=== PATIENT | male | born 1995 | race Caucasian/White ===

== ENCOUNTER 2017-01-18 15:12 | Emergency (ER) | payer OTHER ==
--- NOTE | 2017-01-18 16:29 | DIAGNOSTIC IMAGING REPORT ---
PROCEDURE: ABDOMEN/PELVIS WITH CONTRAST CLINICAL INDICATION: ABDOMINAL PAIN TECHNIQUE: 125 ml of Isovue 300 were injected intravenously and axial images were obtained of the abdomen and pelvis with sagittal and coronal reformations. COMPARISON: None. FINDINGS: ABDOMEN: Clear lung bases. Normal sized heart. No hiatal hernia. The liver is moderately diffusely hypodense. The stomach is filled with ingested material. The gallbladder is decompressed. The adrenal glands, kidneys, pancreas and spleen are normal. The abdominal aorta is normal in its course and caliber. No atherosclerosis. There are no suspicious calcifications, retroperitoneal adenopathy or masses. The stomach, upper small bowel loops, and mesentery are normal. Intact anterior abdominal wall. No free fluid or inflammation. Mild circumferential wall thickening, slight mural edema, and mild mucosal enhancement involving the splenic flexure colon. The rest of the colon appears normal without significant pericolonic inflammation. There are multiple nonenlarged lymph nodes in the right lower quadrant mesentery. PELVIS: The appendix and pelvic small bowel loops are normal. Normal amount of stool in the colon and rectum. The prostate gland, seminal vesicles, urinary bladder, and pelvic vessels are normal. No adenopathy, free fluid, or pelvic mass. Intact osseous structures. IMPRESSION: 1. Changes of colon wall thickening and minor inflammation involving the splenic flexure colon. The rest of the colon appears normal. 2. Mild right lower quadrant lymph nodes but normal appendix. 3. Hepatic hypodensity suggesting edema versus steatosis. Correlate clinically. 4. Findings called to the emergency room. All CT scans at this facility use dose modulation, iterative reconstruction, and/or weight-based dosing when appropriate to reduce radiation dose to as low as reasonably achievable.
--- NOTE | 2017-01-18 16:45 | ED ORDER SUMMARY ---
..... Patient: FLORI LYNCH OrderSheet [facility] VisitID: [id number] [address] [place] [address] 21y, M Registration Date/Time: 01/18/2017 ORDER SHEET Weight: 117.9 kg (stated) Allergies: None GENERAL ORDERS: CT Abd/Pel w Cont (No) (N/A) Urgent (15:45 01/18/2017 Kelin Dockery-C) (Ack 15:48 IJurca ER Tech1) (15:58 KPakev-Andrewn R.N.) - (records from [facility] pt from today) (15:49 01/18/2017 Kelin Dockery-Yinka) (Ack 15:54 IJurca ER Tech1) (15:58 KPage-Kuchan R.N.) MEDICATION ORDERS: IV FLUIDS: IV Saline Lock (15:46 01/18/2017 Kelin Kwon) (15:57 KPakev-Kuchan R.N.) ORDER SHEET NOTES: [Electronically signed by Carol Heredia P.A.-C (17:41 01/18/2017)] [Electronically signed by Alexei Dominguez R.N. (22:12 01/18/2017)] [Electronically locked/signed by Alexei Dominguez R.N. (22:12 01/18/2017)]
--- NOTE | 2017-01-18 16:45 | ED NURSING NOTES ---
Clinical Report - Nurses [facility] [address] [place] [address] 01/18/2017 15:13 Patient: FLORI LYNCH TRIAGE Triage time 15:20 Jan 18 2017. Acuity: LEVEL 4. Chief Complaint: DIARRHEA and RECTAL BLEEDING and BLOOD IN STOOLS (pt reports bloddy diarrhea that began this morning that has cont t/o the day- pt was seen this morning for same, had rectal exam and blood work). Alert. No acute distress. SEPSIS SCREEN: Sepsis Screen: negative. Negative (no infection suspected/documented). --15:28 Alexei Dominguez R.N. 15:20 01/18/17. BP: 151/71. HR: 96. RR: 17 (regular). O2 saturation: 99% on room air. Temp: 98.4 F (oral). Pain level now: 11/10. --15:28 Alexei Dominguez R.N. Weight: 117.9 kg stated. Height/Length: 72 inches Per Patient. BMI: 35.3. --15:24 Alexei Dominguez R.N. Medications None. --15:22 Alexei Dominguez R.N. Medication/allergy information source: the patient. --15:28 Alexei Dominguez R.N. Allergies None. --15:22 Alexei Dominguez R.N. History Arrived by private vehicle. Historian: patient. Accompanied by friend. This started today. He has had nausea and abdominal pain. He has had loose stools (describes as "cramping"). It has been bloody and has been associated with cramps. ( low back pain with low abd pain bilat lower quads). No vomiting. Last oral intake by patient was (2 hours ago). 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 PAST MEDICAL HX: Negative. Immunizations: up-to-date. SURGERY HX: No history of previous surgery. SOCIAL HX: Never smoker. No alcohol use or drug use. No infectious disease exposure. No known contact with a sick individual. ABUSE ASSESSMENT: No report of abuse. SELF HARM ASSESSMENT: A self harm assessment was performed. The patient answered "no" to the question "Have you recently felt down, depressed, or hopeless?", "Have you noticed less interest or pleasure in doing things?", "Do you have thoughts of harming or killing yourself?", "Are you here because you tried to hurt yourself?", "Have you ever tried to hurt yourself before today?", "Have you recently had thoughts about harming or killing others?" and "Do you have any dangerous items in your possession?". FALL RISK ASSESSMENT: Fall risk assessment completed. No fall risk identified. NUTRITIONAL RISK ASSESSMENT: The nutritional risk assessment revealed no deficiencies. FUNCTIONAL ASSESSMENT: Functional assessment: no impairments noted. LEARNING NEEDS ASSESSMENT: The learning needs assessment revealed no barriers. SKIN INTEGRITY ASSESSMENT: Skin integrity risk assessment completed. No skin integrity risk identified. --15:28 Alexei Dominguez R.N. ADDITIONAL SURGERIES: no known surgeries. Interventions ID band on patient. To treatment room. --15:28 Alexei Dominguez R.N. PHYSICAL ASSESSMENT Ambulatory to room. Patient gowned. GENERAL / NEURO / PSYCH: Alert. Oriented X 4. Appears in no acute distress. HEENT: Mucous membranes are pink. RESPIRATORY: Respirations not labored. Breath sounds within normal limits. CVS: Capillary refill less than 2 seconds. GI / : Abdomen soft. Abdominal tenderness in the right lower quadrant and left lower quadrant. Bowel sounds within normal limits. Blood present in the stool. per pt. SKIN: Skin is warm and dry. --15:29 Alexei Dominguez R.N. NURSING PROGRESS NOTES Pulse oximeter and NIBP monitor placed on patient; monitor alarms on. Patient gowned. Head of bed elevated. Two patient identifiers checked. Call light placed in reach. Side rails up x 1. Bed placed in lowest position. Brakes of bed on. Patient ready for evaluation- chart flagged. --15:30 Alexei Dominguez R.N. 15:52 01/18/2017 Site #1 started via IV in the right antecubital space with an 20g angiocath; one attempt. Blood drawn: rainbow set. Labeled in the presence of the patient and sent to the lab. Saline lock flushed with 10 mL saline. --15:57 Alexei Dominguez R.N. 16:01 01/18/17. ( pt ambulatory to CT). --16:14 Alexei Dominguez R.N. 17:08 01/18/2017 Site #1 removed upon discharge. Bandaid applied. --17:18 Alexei Dominguez R.N. DISPOSITION / DISCHARGE Condition at departure: stable. The goals identified in the patient's plan of care were met. No learning barriers present. Discharge instructions provided and reviewed with the patient. Reviewed referral to a recruiting scheduler (pt to keep his apt with GI tomorrow). Reviewed need for increased fluid intake. Patient verbalized understanding. Written instructions provided in Occitan. The patient was discharged by the physician children's nursery assistant. He was discharged home and accompanied by criminal lawyer. He left the Emergency Department ambulatory and via private vehicle. FALL RISK ASSESSMENT: Fall risk assessment completed. No fall risk identified. --17:16 Alexei Dominguez R.N. 17:13 01/18/17. BP: 135/79 taken on the left arm, while sitting. HR: 92. RR: 17. O2 saturation: 100% on room air. Temp: 98.1 F (oral). Pain level now: 10. --17:16 Alexei Dominguez R.N. Locked/Released at 01/18/2017 22:12 by Alexei Dominguez R.N.
--- NOTE | 2017-01-18 16:45 | ED NURSING NOTES ---
Clinical Report - Nurses [facility] [address] [place] [address] 01/18/2017 15:13 Patient: FLORI LYNCH TRIAGE Triage time 15:20 Jan 18 2017. Acuity: LEVEL 4. Chief Complaint: DIARRHEA and RECTAL BLEEDING and BLOOD IN STOOLS (pt reports bloddy diarrhea that began this morning that has cont t/o the day- pt was seen this morning for same, had rectal exam and blood work). Alert. No acute distress. SEPSIS SCREEN: Sepsis Screen: negative. Negative (no infection suspected/documented). --15:28 Alexei Dominguez R.N. 15:20 01/18/17. BP: 151/71. HR: 96. RR: 17 (regular). O2 saturation: 99% on room air. Temp: 98.4 F (oral). Pain level now: 11/10. --15:28 Alexei Dominguez R.N. Weight: 117.9 kg stated. Height/Length: 72 inches Per Patient. BMI: 35.3. --15:24 Alexei Dominguez R.N. Medications None. --15:22 Alexei Dominguez R.N. Medication/allergy information source: the patient. --15:28 Alexei Dominguez R.N. Allergies None. --15:22 Alexei Dominguez R.N. History Arrived by private vehicle. Historian: patient. Accompanied by friend. This started today. He has had nausea and abdominal pain. He has had loose stools (describes as "cramping"). It has been bloody and has been associated with cramps. ( low back pain with low abd pain bilat lower quads). No vomiting. Last oral intake by patient was (2 hours ago). 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 PAST MEDICAL HX: Negative. Immunizations: up-to-date. SURGERY HX: No history of previous surgery. SOCIAL HX: Never smoker. No alcohol use or drug use. No infectious disease exposure. No known contact with a sick individual. ABUSE ASSESSMENT: No report of abuse. SELF HARM ASSESSMENT: A self harm assessment was performed. The patient answered "no" to the question "Have you recently felt down, depressed, or hopeless?", "Have you noticed less interest or pleasure in doing things?", "Do you have thoughts of harming or killing yourself?", "Are you here because you tried to hurt yourself?", "Have you ever tried to hurt yourself before today?", "Have you recently had thoughts about harming or killing others?" and "Do you have any dangerous items in your possession?". FALL RISK ASSESSMENT: Fall risk assessment completed. No fall risk identified. NUTRITIONAL RISK ASSESSMENT: The nutritional risk assessment revealed no deficiencies. FUNCTIONAL ASSESSMENT: Functional assessment: no impairments noted. LEARNING NEEDS ASSESSMENT: The learning needs assessment revealed no barriers. SKIN INTEGRITY ASSESSMENT: Skin integrity risk assessment completed. No skin integrity risk identified. --15:28 Alexei Dominguez R.N. ADDITIONAL SURGERIES: no known surgeries. Interventions ID band on patient. To treatment room. --15:28 Alexei Dominguez R.N. PHYSICAL ASSESSMENT Ambulatory to room. Patient gowned. GENERAL / NEURO / PSYCH: Alert. Oriented X 4. Appears in no acute distress. HEENT: Mucous membranes are pink. RESPIRATORY: Respirations not labored. Breath sounds within normal limits. CVS: Capillary refill less than 2 seconds. GI / : Abdomen soft. Abdominal tenderness in the right lower quadrant and left lower quadrant. Bowel sounds within normal limits. Blood present in the stool. per pt. SKIN: Skin is warm and dry. --15:29 Alexei Dominguez R.N. NURSING PROGRESS NOTES Pulse oximeter and NIBP monitor placed on patient; monitor alarms on. Patient gowned. Head of bed elevated. Two patient identifiers checked. Call light placed in reach. Side rails up x 1. Bed placed in lowest position. Brakes of bed on. Patient ready for evaluation- chart flagged. --15:30 Alexei Dominguez R.N. 15:52 01/18/2017 Site #1 started via IV in the right antecubital space with an 20g angiocath; one attempt. Blood drawn: rainbow set. Labeled in the presence of the patient and sent to the lab. Saline lock flushed with 10 mL saline. --15:57 Alexei Dominguez R.N. 16:01 01/18/17. ( pt ambulatory to CT). --16:14 Alexei Dominguez R.N. 17:08 01/18/2017 Site #1 removed upon discharge. Bandaid applied. --17:18 Alexei Dominguez R.N. DISPOSITION / DISCHARGE Condition at departure: stable. The goals identified in the patient's plan of care were met. No learning barriers present. Discharge instructions provided and reviewed with the patient. Reviewed referral to a registered nurse maternal child (pt to keep his apt with GI tomorrow). Reviewed need for increased fluid intake. Patient verbalized understanding. Written instructions provided in Azeri. The patient was discharged by the physician periodontal assistant. He was discharged home and accompanied by pressure sealer and tester. He left the Emergency Department ambulatory and via private vehicle. FALL RISK ASSESSMENT: Fall risk assessment completed. No fall risk identified. --17:16 Alexei Dominguez R.N. 17:13 01/18/17. BP: 135/79 taken on the left arm, while sitting. HR: 92. RR: 17. O2 saturation: 100% on room air. Temp: 98.1 F (oral). Pain level now: 10. --17:16 Alexei Dominguez R.N. Locked/Released at 01/18/2017 22:12 by Alexei Dominguez R.N.
--- NOTE | 2017-01-18 16:45 | ED ORDER SUMMARY ---
..... Patient: FLORI LYNCH OrderSheet [facility] VisitID: [id number] [address] [place] [address] 21y, M Registration Date/Time: 01/18/2017 ORDER SHEET Weight: 117.9 kg (stated) Allergies: None GENERAL ORDERS: CT Abd/Pel w Cont (No) (N/A) Urgent (15:45 01/18/2017 Kelin Dockery-C) (Ack 15:48 IJurca ER Tech1) (15:58 KPakev-Andrewn R.N.) - ([facility]) (15:49 01/18/2017 Kelin Dockery-Yinka) (Ack 15:54 IJurca ER Tech1) (15:58 KPage-Kuchan R.N.) MEDICATION ORDERS: IV FLUIDS: IV Saline Lock (15:46 01/18/2017 Kelin Kwon) (15:57 KPakev-Kuchan R.N.) ORDER SHEET NOTES: [Electronically signed by Carol Heredia P.A.-C (17:41 01/18/2017)] [Electronically signed by Alexei Dominguez R.N. (22:12 01/18/2017)] [Electronically locked/signed by Alexei Dominguez R.N. (22:12 01/18/2017)]
--- NOTE | 2017-01-18 16:45 | ED CLINICAL REPORT ---
Clinical Report - Physicians/Mid Levels [facility] [address] [place] [address] 01/18/2017 15:13 Patient: FLORI LYNCH Time Seen: 15:50 Jan 18 2017. Arrived- By private vehicle. Historian- patient. HISTORY OF PRESENT ILLNESS Chief Complaint: RECTAL BLEEDING. This started 1months worse now and is still present. The patient has had diarrhea and abdominal pain but not had dark stools. (Patient reports over the last month he has had some hematochezia, with bowel movements, today multiple episodes of such, with diarrhea upward of 20.). Similar symptoms previously: REVIEW OF SYSTEMS No fainting episodes, fever, cough or chills. All systems otherwise negative, except as recorded above. PAST HISTORY NO fam hx Crohns , UC. Has not had diverticulitis. SOCIAL HISTORY Never smoker. No alcohol use or drug use. ADDITIONAL NOTES The nursing notes have been reviewed. PHYSICAL EXAM Vital Signs: 01/18/2017 15:20 BP: 151/71. HR: 96. RR: 17. O2 saturation: 99%. Temp: 98.4 F. Pain level now: 2/10. Appearance: Alert. No acute distress. Eyes: Eyes normal inspection. ENT: Nose normal. Pharynx normal. Neck: Normal inspection. CVS: Normal heart rate and rhythm. Heart sounds normal. Rhythm normal. No extra heart sounds. Respiratory: No respiratory distress. Breath sounds normal. No accessory muscle use, decreased air movement or rales. Back: Normal inspection. No CVA tenderness. Rectal: Trace heme-positive stool. (POC test reference range: negative). No dark stools, reina melena or maroon colored stools. Rectal exam nontender. No hemorrhoids. No digital exam tenderness. Neuro: Oriented X 3. LABS, X-RAYS, AND EKG Abdominal CT: IMPRESSION: 1. Changes of colon wall thickening and minor inflammation involving the splenic flexure colon. The rest of the colon appears normal. 2. Mild right lower quadrant lymph nodes but normal appendix. 3. Hepatic hypodensity suggesting edema versus steatosis. Correlate clinically. 4. Findings called to the emergency room. All CT scans at this facility use dose modulation, iterative reconstruction, and/or weight-based dosing when appropriate to reduce radiation dose to as low as reasonably achievable. Electronically Final signed by:Graciela Shea MD 01/18/2017 4:29:02 PM. PROGRESS AND PROCEDURES Course of Care: CBC: WBC: 8.3 RBC; 5.2 HGB 15.1 HCT 44.4 Platelets 358 Neutrophills 53% PT/ 12.6 INR: 0.94 CMP: Glucose: 102 BUN:9 CR :0.75 NA: 142 Patient scheduled to see gastroenterology tomorrow. Patient had no diarrhea and bowel movements here in the emergency department, slightly positive heme stool with otherwise light brown color. No external signs of injury. Abdomen is soft with slight tenderness on the left aspect. CT of the abdomen is unremarkable. Labs as above a completely benign. Patient denies family history of Crohn's or ulcerative colitis. Denies excessive amount of medication use or changes in his diet. Denies excessive amount of alcohol use. 01/18/2017 17:13 BP: 135/79. HR: 92. RR: 17. O2 saturation: 100%. Temp: 98.1 F. Pain level now: 2/10. Patient is stable. Symptoms better. Patient/family counseled. Disposition: Discharged. CLINICAL IMPRESSION GI bleed with hematochezia. INSTRUCTIONS Drink plenty of fluids. (Do not take MOTRIN/ Aleve or Ibuprofen Take tylenol as needed HYDRATE well Take fiber FOLLOW UP TOMORROW). (Electronically signed by Carol Heredia P.A.-C 01/18/2017 17:41)
--- NOTE | 2017-01-18 22:12 | ED MED RECONCILIATION SUMMARY ---
Patient: FLORI LYNCH Medication Reconciliation Report [facility] VisitID: [id number] [address] [place] [address] 21y, M Registration Date/Time: 01/18/2017 Weight: 117.9 kg Height/Length: 72 in. BMI: 35.3 ALLERGIES: None The patient's Home Medications are listed below: NONE. The source(s) of the original Home Medication information: patient The following Medications were given to the patient in the Emergency Department: None. The following Medications were prescribed to the patient: None.
--- NOTE | 2017-01-18 22:12 | ED MAR SUMMARY ---
..... Medication Administration Record [facility] [address] [place], [place] [id number] Patient: CYNDI LYNCHBRENNAN Clay Visit ID: [id number] 21y, M Weight: 117.9 kg Height/Length: 72 in BMI: 35.3 ALLERGIES: None
--- NOTE | 2017-01-18 22:12 | ED DISCHARGE INSTRUCTIONS ---
Patient: FLORI LYNCH General Instructions [facility] VisitID: [id number] [place] [address] 21y, M Registration Date/Time: 01/18/2017 GI bleed with hematochezia. INSTRUCTIONS Drink plenty of fluids. (Do not take MOTRIN/ Aleve or Ibuprofen Take tylenol as needed HYDRATE well Take fiber FOLLOW UP TOMORROW). ADDITIONAL INFORMATION Rectal Bleeding (Stable) Your exam today shows signs of blood in the stool. This is called rectal bleeding, because the blood passes through the rectum. However, the blood may not be coming from the rectum. Blood in the stool may be red or black in color. Red blood in the stool usually comes from the lower gastro-intestinal (GI) tract. This may be due to diverticulosis, polyps, colon inflammation or infection, anal fissure or hemorrhoids. In persons over 50 tumors and cancer of the intestinal tract may first show up as red blood in the stool. Upper GI bleeding causes the stool to turn black. This may occur with bleeding from the esophagus, stomach, duodenum or small intestine. Very small amounts of GI bleeding may not be visible and can only be discovered on a chemical test of the stool. You have not lost a large amount of blood and your condition appears stable at this time. It is very important to have a follow-up exam to determine the exact cause of your bleeding. Home Care: 1) You may resume normal activity as long as you feel well. 2) Avoid aspirin and anti-inflammatory drugs such as ibuprofen (Advil, Motrin) and naproxen (Aleve and Naprosyn). You may use acetaminophen (Tylenol) for pain. [ NOTE : If you have chronic liver disease, talk with your doctor before using acetaminophen.] 3) Avoid alcohol. Follow Up with your doctor or as advised by our medical staff. It is very important that you have further tests done to find the cause of your bleeding. Get Prompt Medical Attention if any of the following occur: -- Large amount of rectal bleeding (more than 1 cup of blood in 24 hours) -- Increasing abdominal pain -- Weakness, dizziness or fainting -- Vomiting blood (red or black color) You have been given the following additional information: Rectal Bleed, Stable (Electronically signed by Carol Heredia P.A.-C 01/18/2017 17:41)
--- NOTE | 2017-01-18 22:12 | ED MED RECONCILIATION SUMMARY ---
Patient: FLORI LYNCH Medication Reconciliation Report [facility] VisitID: [id number] [address] [place] [place] [address] 21y, M Registration Date/Time: 01/18/2017 Weight: 117.9 kg Height/Length: 72 in. BMI: 35.3 ALLERGIES: None The patient's Home Medications are listed below: NONE. The source(s) of the original Home Medication information: patient The following Medications were given to the patient in the Emergency Department: None. The following Medications were prescribed to the patient: None.
--- NOTE | 2017-01-18 22:12 | ED MAR SUMMARY ---
..... Medication Administration Record [facility] [address] [place] [place], [place] [id number] Patient: CYNDI LYNCHBRENNAN Clay Visit ID: [id number] 21y, M Weight: 117.9 kg Height/Length: 72 in BMI: 35.3 ALLERGIES: None
== END 2017-01-18 17:08 | disposition home or self-care (01) ==
LOC: ED SRH 15:12
DX: K92.1 Melena (principal); K92.2 Gastrointestinal hemorrhage, unspecified

== ENCOUNTER 2017-01-21 21:01 | Emergency (ER) | payer OTHER ==
--- NOTE | 2017-01-21 22:59 | ED NURSING NOTES ---
Clinical Report - Nurses [facility] [address] [place] [address] 01/21/2017 21:02 Patient: FLORI LYNCH TRIAGE Triage time 21:Jan 21 2017. Acuity: LEVEL 3. Chief Complaint: ABDOMINAL PAIN and VOMITING. Alert. No acute distress. SEPSIS SCREEN: Sepsis Screen: negative. Negative (no infection suspected/documented). ORESTES COMA SCORE: Orestes Coma Scale: 15- eyes open spontaneously (4); best verbal response- oriented x 4 (5); best motor response- obeys commands (6). --21:11 Mercedes Villarreal R.N. 21:07 01/21/17. BP: 142/79. HR: 87. RR: 16. O2 saturation: 98%. Temp: 98.2 F. Pain level now: 12/08. --21:11 Mercedes Villarreal R.N. Weight: 117.9 kg. Height/Length: 72 inches. BMI: 35.3. --21:09 Mercedes Villarreal R.N. Medications None. --21:09 Mercedes Villarreal R.N. Allergies None. --21:09 Mercedes Villarreal R.N. History Arrived by private vehicle. Historian: patient. Accompanied by family. This is a new problem. (about 8 PM). ( bloody stools). 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 PAST MEDICAL HX: Immunizations: up-to-date. SOCIAL HX: Never smoker. No alcohol use or drug use. Recent travel. No infectious disease exposure. No known contact with a sick individual. SELF HARM ASSESSMENT: A self harm assessment was performed. The patient answered "no" to the question "Do you have thoughts of harming or killing yourself?". FALL RISK ASSESSMENT: Fall risk assessment completed. No fall risk identified. NUTRITIONAL RISK ASSESSMENT: The nutritional risk assessment revealed no deficiencies. FUNCTIONAL ASSESSMENT: Functional assessment: no impairments noted. LEARNING NEEDS ASSESSMENT: The learning needs assessment revealed no barriers. ABUSE ASSESSMENT: Abuse assessment: The patient was asked "Do you feel safe in your home?". SKIN INTEGRITY ASSESSMENT: Skin integrity risk assessment completed. No skin integrity risk identified. --: Mercedes Villarreal R.N. PROBLEMS: GI Bleeding. Chemical Exposure, Eye. Spinal Injury. Concussion. Fall. Hypertension. --21: Mercedes Villarreal R.N. Interventions ID band on patient. To room. --21: Mercedes Villarreal R.N. PHYSICAL ASSESSMENT Ambulatory to room. GENERAL / NEURO / PSYCH: Alert. Oriented X 4. Appears in no acute distress. RESPIRATORY: Respirations not labored. CVS: Capillary refill less than 2 seconds. GI / : The patient has had nausea. Emesis noted. Abdomen soft. Abdominal tenderness in the right lower quadrant (radiates across abdomen). Blood present in the stool as dark colored stools. c/o loose stools. SKIN: Skin is warm and dry. --21: Mercedes Villarreal R.N. NURSING PROGRESS NOTES The plan of care for this patient includes an assessment with efforts to address the presence of pain. Patient gowned. Head of bed elevated. Patient identifiers checked. Call light placed in reach. Side rails up x 1. Bed placed in lowest position. Brakes of bed on. --: Mercedes Villarreal R.N. 01/21/2017 Site #1 started via IV in the right hand with an 20g angiocath, with aseptic technique and good blood return; one attempt. Blood drawn: rainbow set. Labeled in the presence of the patient and sent to the lab. Saline lock flushed with 10 mL saline. --: Mercedes Villarreal R.N. 22:30 01/21/2017 Dilaudid (HYDROmorphone HCl PF) IVP 1 mg given over 2 minute(s) via site #1. Allergies verified, confirmed 5 rights and sedative warning given to the patient. IV patency established. IV site checked: no pain, redness, or swelling. IV flushed thoroughly pre- and post-medication administration. IVP given by RN. --: Mercedes Villarreal R.N. 22:01/21/2017 Reglan (Metoclopramide HCl) IVP 10 mg given over 2 minute(s) via site #1. Allergies verified and confirmed 5 rights. IV patency established. IV site checked: no pain, redness, or swelling. IV flushed thoroughly pre- and post-medication administration. IVP given by RN. --22:30 Mercedes Villarreal R.N. The patient is calm and resting quietly. Overall patient status is the same. --22:33 Mercedes Villarreal R.N. 22:29 01/21/17. BP: 126/75. HR: 88. RR: 16. O2 saturation: 94%. Pain level now: 04/09. --22:33 Mercedes Villarreal R.N. ( US to room). --22:34 Mercedes Villarreal R.N. DISPOSITION / DISCHARGE 22:59 01/21/2017 Site #1 removed upon discharge. Bandage applied. --22:59 Mercedes Villarreal R.N. 22:58 01/21/17. BP: 123/75. HR: 88. RR: 16. O2 saturation: 96%. Pain level now: 01/08. --22:59 Mercedes Villarreal R.N. Departure time: 23:Jan 21 2017. Condition at departure: improved. No learning barriers present. Discharge instructions provided and reviewed with the patient. Reviewed referral to a star route mail driver. Patient verbalized understanding. Written instructions provided in Turkmen. The patient was discharged home and accompanied by biometrics instructor. He left the Emergency Department ambulatory and via private vehicle. Ruby On Rails Developer driving. FALL RISK ASSESSMENT: Fall risk assessment completed. No fall risk identified. --23:03 Mercedes Villarreal R.N. Locked/Released at 01/21/2017 23:13 by Mercedes Villarreal R.N.
--- NOTE | 2017-01-21 22:59 | ED CLINICAL REPORT ---
Clinical Report - Physicians/Mid Levels [facility] [address] [place] [place] [address] 01/21/2017 21:02 Patient: FLORI LYNCH Time Seen: 22:10. Arrived- By private vehicle. Historian- patient. HISTORY OF PRESENT ILLNESS Chief Complaint: RECTAL BLEEDING. and vomiting dark material. This started just prior to arrival and has been mild. (pt is undergoing workup with GI for rectal bleed possible colitis and is scheduled for a colonoscopy soon, but developed abdominal pain in right side and vomited x 1 today after dinner and felt there was dark material in it while at a restaurant. salad...). Is now gone. The patient has had rectal bleeding described as bleeding without stool and bright red blood on toilet paper, nausea and moderate, constant abdominal pain. The pain is described as generalized, located in the RUQ and right side of the abdomen and radiating to the back and associated with nausea. The patient has had vomiting (today). The vomiting has occurred only once. Similar symptoms previously: Several times. Recent medical care: The patient was seen recently at this facility in the emergency department. REVIEW OF SYSTEMS No dizziness, fainting episodes or weakness. All systems otherwise negative, except as recorded above. PAST HISTORY See nurses notes. Problems: Recent Travel. GI Bleeding. Chemical Exposure, Eye. Spinal Injury. Concussion. Fall. Hypertension. Medications: None. Allergies: None. SOCIAL HISTORY Alcohol use. No drug use. FAMILY HISTORY Negative. ADDITIONAL NOTES The nursing notes have been reviewed with agreement regarding the chief complaint, HPI, ROS, PMH and patient medications and allergies. PHYSICAL EXAM Vital Signs: 01/21/2017 22:58 BP: 123/75. HR: 88. RR: 16. O2 saturation: 96%. Pain level now: 4/10. Have been reviewed. Appearance: Alert. Oriented X3. No acute distress. Eyes: Pupils equal, round and reactive to light. Eyes normal inspection. Neck: Normal inspection. Neck supple. CVS: Normal heart rate and rhythm. Heart sounds normal. Respiratory: No respiratory distress. Breath sounds normal. Abdomen: Soft. Moderate tenderness in the right upper quadrant and right side of the abdomen with guarding and rebound tenderness present. No Menon's, obturator or psoas sign present. The bowel sounds are not abnormal. No distention, mass present, organomegaly or femoral pulse deficit. Back: Normal inspection. No CVA tenderness. Rectal: Rectal exam normal and nontender. Stool heme negative; hemoccult head of quality check passed. (POC test reference range: negative). Skin: Skin warm and dry. Normal skin color. No rash. Normal skin turgor. Extremities: No lower extremity edema. Neuro: Oriented X 3. LABS, X-RAYS, AND EKG Abdominal CT: Name: Flori Lynch : 1995 MR#: [id number] Ordering Provider: BRANDEE ROGERS Exam(s): CT ABD/PELVIS WITH CONTRAST Date of Exam: 01/18/2017 __ PROCEDURE: ABDOMEN/PELVIS WITH CONTRAST CLINICAL INDICATION: ABDOMINAL PAIN TECHNIQUE: 125 ml of Isovue 300 were injected intravenously and axial images were obtained of the abdomen and pelvis with sagittal and coronal reformations. COMPARISON: None. FINDINGS: ABDOMEN: Clear lung bases. Normal sized heart. No hiatal hernia. The liver is moderately diffusely hypodense. The stomach is filled with ingested material. The gallbladder is decompressed. The adrenal glands, kidneys, pancreas and spleen are normal. The abdominal aorta is normal in its course and caliber. No atherosclerosis. There are no suspicious calcifications, retroperitoneal adenopathy or masses. The stomach, upper small bowel loops, and mesentery are normal. Intact anterior abdominal wall. No free fluid or inflammation. Mild circumferential wall thickening, slight mural edema, and mild mucosal enhancement involving the splenic flexure colon. The rest of the colon appears normal without significant pericolonic inflammation. There are multiple nonenlarged lymph nodes in the right lower quadrant mesentery. PELVIS: The appendix and pelvic small bowel loops are normal. Normal amount of stool in the colon and rectum. The prostate gland, seminal vesicles, urinary bladder, and pelvic vessels are normal. No adenopathy, free fluid, or pelvic mass. Intact osseous structures. IMPRESSION: 1. Changes of colon wall thickening and minor inflammation involving the splenic flexure colon. The rest of the colon appears normal. 2. Mild right lower quadrant lymph nodes but normal appendix. 3. Hepatic hypodensity suggesting edema versus steatosis. Correlate clinically. 4. Findings called to the emergency room. All CT scans at this facility use dose modulation, iterative reconstruction, and/or weight-based dosing when appropriate to reduce radiation dose to as low as reasonably achievable. Electronically Final signed by:Graciela Shea MD 01/18/2017 4:29:02 PM Technologist: SALVADOR. Abdominal Sonogram: No acute disease. Laboratory Tests: CBC w Diff: (SILVIA: 01/21/2017 21:20) ( [facility] 01/21/2017 22:07) Final results Test Result Flag Units (Reference) WHITE BLOOD COUNT 10.9 K/uL (4.5-11.5) RED BLOOD COUNT 5.32 M/uL (4.50-5.90) HEMOGLOBIN 15.3 gm/dL (13.5-17.5) HEMATOCRIT 45.8 % (41.0-53.0) MEAN CELL VOLUME 86 fL (80-100) MEAN CORPUSCULAR HGB 29 pg (26-34) MEAN CORPUSCULAR HGB CONC 33 g/dL (31-37) RED CELL DISTRIBUTION WIDTH 12.7 % (11.6-14.8) PLATELET COUNT 391 K/uL (150-400) LYMPH % 38.6 % (25-40) MONO % 4.2 % (3-14) GRANULOCYTE % 57.2 Lipase: (SILVIA: 01/21/2017 21:20) ( [facility] [place] 01/21/2017 22:32) Final results Test Result Flag Units (Reference) LIPASE 130 U/L (73-393) AMYLASE 19 L U/L (25-115) CMP: (SILVIA: 01/21/2017 21:20) ( [facility] 01/21/2017 22:20) Final results Test Result Flag Units (Reference) GLUCOSE 102 mg/dL (70-110) BUN 17 mg/dL (7-18) CREATININE 0.9 mg/dL (0.6-1.3) Estimated GFR >60 mL/min Estimated GFR- >60 mL/min Note: Persistent reduction over 3 months in eGFR<60 mL/min/1.73 m2 defines CKD. Patients with eGFR values>=60 mL/min/1.73 m2 may also have CKD if evidence ofpersistent proteinuria. Additional information may be foundat www.[email or web address].org. SODIUM 141 mmol/L (136-145) POTASSIUM 3.9 mmol/L (3.5-5.1) CHLORIDE 103 mmol/L (98-107) CARBON DIOXIDE 27 mmol/L (21-32) CALCIUM 9.1 mg/dL (8.5-10.1) TOTAL PROTEIN 7.9 g/dL (6.4-8.2) ALBUMIN 4.2 g/dL (3.3-5.0) BILIRUBIN, TOTAL 0.5 mg/dL (0.0-1.0) ALKALINE PHOSPHATASE 86 U/L (46-116) AST (SGOT) 29 U/L (15-37) ALT (SGPT) 61 U/L (12-78) . PROGRESS AND PROCEDURES Course of Care: The plan of care for this patient includes an assessment with efforts to address the presence of pain. Patient gowned. Head of bed elevated. Patient identifiers checked. Call light placed in reach. Side rails up x 1. Bed placed in lowest position. Brakes of bed on. --21:13 Mercedes Villarreal R.N. 21:23 01/21/2017 Site #1 started via IV in the right hand with an 20g angiocath, with aseptic technique and good blood return; one attempt. Blood drawn: rainbow set. Labeled in the presence of the patient and sent to the lab. Saline lock flushed with 10 mL saline. --21:23 Mercedes Villarreal R.N. 22:30 01/21/2017 Dilaudid (HYDROmorphone HCl PF) IVP 1 mg given over 2 minute(s) via site #1. Allergies verified, confirmed 5 rights and sedative warning given to the patient. IV patency established. IV site checked: no pain, redness, or swelling. IV flushed thoroughly pre- and post-medication administration. IVP given by RN. --22:30 Mercedes Villarreal R.N. 22:30 01/21/2017 Reglan (Metoclopramide HCl) IVP 10 mg given over 2 minute(s) via site #1. Allergies verified and confirmed 5 rights. IV patency established. IV site checked: no pain, redness, or swelling. IV flushed thoroughly pre- and post-medication administration. IVP given by RN. --22:30 Mercedes Villarreal R.N. The patient is calm and resting quietly. Overall patient status is the same. --22:33 Mercedes Villarreal R.N. 22:29 01/21/17. BP: 126/75. HR: 88. RR: 16. O2 saturation: 94%. Pain level now: 04/09. --22:33 Mercedes Villarreal R.N. ( US to room). --22:34 Mercedes Villarreal R.N. 22:59 01/21/2017 Site #1 removed upon discharge. Bandage applied. --22:59 Mercedes Villarreal R.N. 22:58 01/21/17. BP: 123/75. HR: 88. RR: 16. O2 saturation: 96%. Pain level now: 01/08. --22:59 Mercedes Villarreal R.N. Departure time: 23:Jan 21 2017. Condition at departure: improved. No learning barriers present. Discharge instructions provided and reviewed with the patient. Reviewed referral to a hole digger. Patient verbalized understanding. Written instructions provided in Pakistani. The patient was discharged home and accompanied by scraper operator. He left the Emergency Department ambulatory and via private vehicle. Plant Mechanic driving. FALL RISK ASSESSMENT: Fall risk assessment completed. No fall risk identified. --23:03 Mercedes Villarreal R.N. Locked/Released at 01/21/2017 23:13 by Mercedes Villarreal R.N. Patient is stable. Physical exam findings are improved. Symptoms better. Patient/family counseled. CLINICAL IMPRESSION Bilious vomiting with nausea. Acute right upper quadrant abdominal pain of undetermined cause. INSTRUCTIONS Rest. Do not work for two days until better. Take clear liquids only for the next 24 hours. Advance diet as tolerated. No alcohol. Do not smoke. (no wheat no dairy in diet, start with clear broth and advance as tolerated. all lab was normal, stool was guiac negative. keep your appointment with the hole digger this week. if your symptoms recur or worsen, return to the ER for further evaluation. your Cat scan and ultrasound did not show definite cause of your symptoms. you may need a colonoscopy.). Warnings: Further evaluation is necessary in order to conduct further tests. It is very important to follow up with a physician. GENERAL WARNINGS: Return or contact your physician immediately if your condition worsens or changes unexpectedly, if not improving as expected, or if other problems arise. Prescription Medications: Reglan 10 mg tablets: take 1 orally every 6 hours as needed for nausea or vomiting. Dispense ten (10). No refills. Substitution is permissible. Follow-up: Follow up with a hole digger as scheduled. Reason for referral: GI bleed, possible colitis. Understanding of the discharge instructions verbalized by patient. (Electronically signed by Karey Campuzano PA-C 01/21/2017 23:21)
--- NOTE | 2017-01-21 22:59 | ED CLINICAL REPORT ---
Clinical Report - Physicians/Mid Levels [facility] [address] [place] [place] [address] 01/21/2017 21:02 Patient: FLORI LYNCH Time Seen: 22:10. Arrived- By private vehicle. Historian- patient. HISTORY OF PRESENT ILLNESS Chief Complaint: RECTAL BLEEDING. and vomiting dark material. This started just prior to arrival and has been mild. (pt is undergoing workup with GI for rectal bleed possible colitis and is scheduled for a colonoscopy soon, but developed abdominal pain in right side and vomited x 1 today after dinner and felt there was dark material in it while at a restaurant. salad...). Is now gone. The patient has had rectal bleeding described as bleeding without stool and bright red blood on toilet paper, nausea and moderate, constant abdominal pain. The pain is described as generalized, located in the RUQ and right side of the abdomen and radiating to the back and associated with nausea. The patient has had vomiting (today). The vomiting has occurred only once. Similar symptoms previously: Several times. Recent medical care: The patient was seen recently at this facility in the emergency department. REVIEW OF SYSTEMS No dizziness, fainting episodes or weakness. All systems otherwise negative, except as recorded above. PAST HISTORY See nurses notes. Problems: Recent Travel. GI Bleeding. Chemical Exposure, Eye. Spinal Injury. Concussion. Fall. Hypertension. Medications: None. Allergies: None. SOCIAL HISTORY Alcohol use. No drug use. FAMILY HISTORY Negative. ADDITIONAL NOTES The nursing notes have been reviewed with agreement regarding the chief complaint, HPI, ROS, PMH and patient medications and allergies. PHYSICAL EXAM Vital Signs: 01/21/2017 22:58 BP: 123/75. HR: 88. RR: 16. O2 saturation: 96%. Pain level now: 4/10. Have been reviewed. Appearance: Alert. Oriented X3. No acute distress. Eyes: Pupils equal, round and reactive to light. Eyes normal inspection. Neck: Normal inspection. Neck supple. CVS: Normal heart rate and rhythm. Heart sounds normal. Respiratory: No respiratory distress. Breath sounds normal. Abdomen: Soft. Moderate tenderness in the right upper quadrant and right side of the abdomen with guarding and rebound tenderness present. No Menon's, obturator or psoas sign present. The bowel sounds are not abnormal. No distention, mass present, organomegaly or femoral pulse deficit. Back: Normal inspection. No CVA tenderness. Rectal: Rectal exam normal and nontender. Stool heme negative; hemoccult quality assurance coach check passed. (POC test reference range: negative). Skin: Skin warm and dry. Normal skin color. No rash. Normal skin turgor. Extremities: No lower extremity edema. Neuro: Oriented X 3. LABS, X-RAYS, AND EKG Abdominal CT: Name: Flori Lynch : 1995 MR#: [id number] Ordering Provider: BRANDEE ROGRES Exam(s): CT ABD/PELVIS WITH CONTRAST Date of Exam: 01/18/2017 __ PROCEDURE: ABDOMEN/PELVIS WITH CONTRAST CLINICAL INDICATION: ABDOMINAL PAIN TECHNIQUE: 125 ml of Isovue 300 were injected intravenously and axial images were obtained of the abdomen and pelvis with sagittal and coronal reformations. COMPARISON: None. FINDINGS: ABDOMEN: Clear lung bases. Normal sized heart. No hiatal hernia. The liver is moderately diffusely hypodense. The stomach is filled with ingested material. The gallbladder is decompressed. The adrenal glands, kidneys, pancreas and spleen are normal. The abdominal aorta is normal in its course and caliber. No atherosclerosis. There are no suspicious calcifications, retroperitoneal adenopathy or masses. The stomach, upper small bowel loops, and mesentery are normal. Intact anterior abdominal wall. No free fluid or inflammation. Mild circumferential wall thickening, slight mural edema, and mild mucosal enhancement involving the splenic flexure colon. The rest of the colon appears normal without significant pericolonic inflammation. There are multiple nonenlarged lymph nodes in the right lower quadrant mesentery. PELVIS: The appendix and pelvic small bowel loops are normal. Normal amount of stool in the colon and rectum. The prostate gland, seminal vesicles, urinary bladder, and pelvic vessels are normal. No adenopathy, free fluid, or pelvic mass. Intact osseous structures. IMPRESSION: 1. Changes of colon wall thickening and minor inflammation involving the splenic flexure colon. The rest of the colon appears normal. 2. Mild right lower quadrant lymph nodes but normal appendix. 3. Hepatic hypodensity suggesting edema versus steatosis. Correlate clinically. 4. Findings called to the emergency room. All CT scans at this facility use dose modulation, iterative reconstruction, and/or weight-based dosing when appropriate to reduce radiation dose to as low as reasonably achievable. Electronically Final signed by:Graciela Shea MD 01/18/2017 4:29:02 PM Technologist: SALVADOR. Abdominal Sonogram: No acute disease. Laboratory Tests: CBC w Diff: (SILVIA: 01/21/2017 21:20) ( [facility] 01/21/2017 22:07) Final results Test Result Flag Units (Reference) WHITE BLOOD COUNT 10.9 K/uL (4.5-11.5) RED BLOOD COUNT 5.32 M/uL (4.50-5.90) HEMOGLOBIN 15.3 gm/dL (13.5-17.5) HEMATOCRIT 45.8 % (41.0-53.0) MEAN CELL VOLUME 86 fL (80-100) MEAN CORPUSCULAR HGB 29 pg (26-34) MEAN CORPUSCULAR HGB CONC 33 g/dL (31-37) RED CELL DISTRIBUTION WIDTH 12.7 % (11.6-14.8) PLATELET COUNT 391 K/uL (150-400) LYMPH % 38.6 % (25-40) MONO % 4.2 % (3-14) GRANULOCYTE % 57.2 Lipase: (SILVIA: 01/21/2017 21:20) ( [facility] [place] 22:32) Final results Test Result Flag Units (Reference) LIPASE 130 U/L (73-393) AMYLASE 19 L U/L (25-115) CMP: (SILVIA: 01/21/2017 21:20) ( [facility] 01/21/2017 22:20) Final results Test Result Flag Units (Reference) GLUCOSE 102 mg/dL (70-110) BUN 17 mg/dL (7-18) CREATININE 0.9 mg/dL (0.6-1.3) Estimated GFR >60 mL/min Estimated GFR- >60 mL/min Note: Persistent reduction over 3 months in eGFR<60 mL/min/1.73 m2 defines CKD. Patients with eGFR values>=60 mL/min/1.73 m2 may also have CKD if evidence ofpersistent proteinuria. Additional information may be foundat www.kidney.org. SODIUM 141 mmol/L (136-145) POTASSIUM 3.9 mmol/L (3.5-5.1) CHLORIDE 103 mmol/L (98-107) CARBON DIOXIDE 27 mmol/L (21-32) CALCIUM 9.1 mg/dL (8.5-10.1) TOTAL PROTEIN 7.9 g/dL (6.4-8.2) ALBUMIN 4.2 g/dL (3.3-5.0) BILIRUBIN, TOTAL 0.5 mg/dL (0.0-1.0) ALKALINE PHOSPHATASE 86 U/L (46-116) AST (SGOT) 29 U/L (15-37) ALT (SGPT) 61 U/L (12-78) . PROGRESS AND PROCEDURES Course of Care: The plan of care for this patient includes an assessment with efforts to address the presence of pain. Patient gowned. Head of bed elevated. Patient identifiers checked. Call light placed in reach. Side rails up x 1. Bed placed in lowest position. Brakes of bed on. --21:13 Mercedes Villarreal R.N. 21:23 01/21/2017 Site #1 started via IV in the right hand with an 20g angiocath, with aseptic technique and good blood return; one attempt. Blood drawn: rainbow set. Labeled in the presence of the patient and sent to the lab. Saline lock flushed with 10 mL saline. --21:23 Mercedes Villarreal R.N. 22:30 01/21/2017 Dilaudid (HYDROmorphone HCl PF) IVP 1 mg given over 2 minute(s) via site #1. Allergies verified, confirmed 5 rights and sedative warning given to the patient. IV patency established. IV site checked: no pain, redness, or swelling. IV flushed thoroughly pre- and post-medication administration. IVP given by RN. --22:30 Mercedes Villarreal R.N. 22:30 01/21/2017 Reglan (Metoclopramide HCl) IVP 10 mg given over 2 minute(s) via site #1. Allergies verified and confirmed 5 rights. IV patency established. IV site checked: no pain, redness, or swelling. IV flushed thoroughly pre- and post-medication administration. IVP given by RN. --22:30 Mercedes Villarreal R.N. The patient is calm and resting quietly. Overall patient status is the same. --22:33 Mercedes Villarreal R.N. 22:29 01/21/17. BP: 126/75. HR: 88. RR: 16. O2 saturation: 94%. Pain level now: 04/09. --22:33 Mercedes Villarreal R.N. ( US to room). --22:34 Mercedes Villarreal R.N. 22:59 01/21/2017 Site #1 removed upon discharge. Bandage applied. --22:59 Mercedes Villarreal R.N. 22:58 01/21/17. BP: 123/75. HR: 88. RR: 16. O2 saturation: 96%. Pain level now: 01/08. --22:59 Mercedes Villarreal R.N. Departure time: 23:Jan 21 2017. Condition at departure: improved. No learning barriers present. Discharge instructions provided and reviewed with the patient. Reviewed referral to a vegetable picker. Patient verbalized understanding. Written instructions provided in Guyanese. The patient was discharged home and accompanied by pre press proofer. He left the Emergency Department ambulatory and via private vehicle. Culinary Instructor driving. FALL RISK ASSESSMENT: Fall risk assessment completed. No fall risk identified. --23:03 Mercedes Villarreal R.N. Locked/Released at 01/21/2017 23:13 by Mercedes Villarreal R.N. Patient is stable. Physical exam findings are improved. Symptoms better. Patient/family counseled. CLINICAL IMPRESSION Bilious vomiting with nausea. Acute right upper quadrant abdominal pain of undetermined cause. INSTRUCTIONS Rest. Do not work for two days until better. Take clear liquids only for the next 24 hours. Advance diet as tolerated. No alcohol. Do not smoke. (no wheat no dairy in diet, start with clear broth and advance as tolerated. all lab was normal, stool was guiac negative. keep your appointment with the vegetable picker this week. if your symptoms recur or worsen, return to the ER for further evaluation. your Cat scan and ultrasound did not show definite cause of your symptoms. you may need a colonoscopy.). Warnings: Further evaluation is necessary in order to conduct further tests. It is very important to follow up with a physician. GENERAL WARNINGS: Return or contact your physician immediately if your condition worsens or changes unexpectedly, if not improving as expected, or if other problems arise. Prescription Medications: Reglan 10 mg tablets: take 1 orally every 6 hours as needed for nausea or vomiting. Dispense ten (10). No refills. Substitution is permissible. Follow-up: Follow up with a vegetable picker as scheduled. Reason for referral: GI bleed, possible colitis. Understanding of the discharge instructions verbalized by patient. (Electronically signed by Karey Campuzano PA-C 01/21/2017 23:21)
--- NOTE | 2017-01-21 22:59 | ED NURSING NOTES ---
Clinical Report - Nurses [facility] [address] [place] [address] 01/21/2017 21:02 Patient: FLORI LYNCH TRIAGE Triage time 21:Jan 21 2017. Acuity: LEVEL 3. Chief Complaint: ABDOMINAL PAIN and VOMITING. Alert. No acute distress. SEPSIS SCREEN: Sepsis Screen: negative. Negative (no infection suspected/documented). ORESTES COMA SCORE: Orestes Coma Scale: 15- eyes open spontaneously (4); best verbal response- oriented x 4 (5); best motor response- obeys commands (6). --21:11 Mercedes Villarreal R.N. 21:07 01/21/17. BP: 142/79. HR: 87. RR: 16. O2 saturation: 98%. Temp: 98.2 F. Pain level now: 12/08. --21:11 Mercedes Villarreal R.N. Weight: 117.9 kg. Height/Length: 72 inches. BMI: 35.3. --21:09 Mercedes Villarreal R.N. Medications None. --21:09 Mercedes Villarreal R.N. Allergies None. --21:09 Mercedes Villarreal R.N. History Arrived by private vehicle. Historian: patient. Accompanied by family. This is a new problem. (about 8 PM). ( bloody stools). 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 PAST MEDICAL HX: Immunizations: up-to-date. SOCIAL HX: Never smoker. No alcohol use or drug use. Recent travel. No infectious disease exposure. No known contact with a sick individual. SELF HARM ASSESSMENT: A self harm assessment was performed. The patient answered "no" to the question "Do you have thoughts of harming or killing yourself?". FALL RISK ASSESSMENT: Fall risk assessment completed. No fall risk identified. NUTRITIONAL RISK ASSESSMENT: The nutritional risk assessment revealed no deficiencies. FUNCTIONAL ASSESSMENT: Functional assessment: no impairments noted. LEARNING NEEDS ASSESSMENT: The learning needs assessment revealed no barriers. ABUSE ASSESSMENT: Abuse assessment: The patient was asked "Do you feel safe in your home?". SKIN INTEGRITY ASSESSMENT: Skin integrity risk assessment completed. No skin integrity risk identified. --: Mercedes Villarreal R.N. PROBLEMS: GI Bleeding. Chemical Exposure, Eye. Spinal Injury. Concussion. Fall. Hypertension. --21: Mercedes Villarreal R.N. Interventions ID band on patient. To room. --21: Mercedes Villarreal R.N. PHYSICAL ASSESSMENT Ambulatory to room. GENERAL / NEURO / PSYCH: Alert. Oriented X 4. Appears in no acute distress. RESPIRATORY: Respirations not labored. CVS: Capillary refill less than 2 seconds. GI / : The patient has had nausea. Emesis noted. Abdomen soft. Abdominal tenderness in the right lower quadrant (radiates across abdomen). Blood present in the stool as dark colored stools. c/o loose stools. SKIN: Skin is warm and dry. --21: Mercedes Villarreal R.N. NURSING PROGRESS NOTES The plan of care for this patient includes an assessment with efforts to address the presence of pain. Patient gowned. Head of bed elevated. Patient identifiers checked. Call light placed in reach. Side rails up x 1. Bed placed in lowest position. Brakes of bed on. --: Mercedes Villarreal R.N. 01/21/2017 Site #1 started via IV in the right hand with an 20g angiocath, with aseptic technique and good blood return; one attempt. Blood drawn: rainbow set. Labeled in the presence of the patient and sent to the lab. Saline lock flushed with 10 mL saline. --: Mercedes Villarreal R.N. 22:30 01/21/2017 Dilaudid (HYDROmorphone HCl PF) IVP 1 mg given over 2 minute(s) via site #1. Allergies verified, confirmed 5 rights and sedative warning given to the patient. IV patency established. IV site checked: no pain, redness, or swelling. IV flushed thoroughly pre- and post-medication administration. IVP given by RN. --: Mercedes Villarreal R.N. 22:01/21/2017 Reglan (Metoclopramide HCl) IVP 10 mg given over 2 minute(s) via site #1. Allergies verified and confirmed 5 rights. IV patency established. IV site checked: no pain, redness, or swelling. IV flushed thoroughly pre- and post-medication administration. IVP given by RN. --22:30 Mercedes Villarreal R.N. The patient is calm and resting quietly. Overall patient status is the same. --22:33 Mercedes Villarreal R.N. 22:29 01/21/17. BP: 126/75. HR: 88. RR: 16. O2 saturation: 94%. Pain level now: 04/09. --22:33 Mercedes Villarreal R.N. ( US to room). --22:34 Mercedes Villarreal R.N. DISPOSITION / DISCHARGE 22:59 01/21/2017 Site #1 removed upon discharge. Bandage applied. --22:59 Mercedes Villarreal R.N. 22:58 01/21/17. BP: 123/75. HR: 88. RR: 16. O2 saturation: 96%. Pain level now: 01/08. --22:59 Mercedes Villarreal R.N. Departure time: 23:Jan 21 2017. Condition at departure: improved. No learning barriers present. Discharge instructions provided and reviewed with the patient. Reviewed referral to a personal fitness manager. Patient verbalized understanding. Written instructions provided in Greenlandic. The patient was discharged home and accompanied by bag presser. He left the Emergency Department ambulatory and via private vehicle. Value Analyst driving. FALL RISK ASSESSMENT: Fall risk assessment completed. No fall risk identified. --23:03 Mercedes Villarreal R.N. Locked/Released at 01/21/2017 23:13 by Mercedes Villarreal R.N.
--- NOTE | 2017-01-21 23:00 | ED ORDER SUMMARY ---
..... Patient: FLORI LYNCH OrderSheet [facility] VisitID: [id number] [place] [address] 21y, M Registration Date/Time: 01/21/2017 ORDER SHEET Weight: 117.9 kg Allergies: None GENERAL ORDERS: CBC w Diff Urgent (21:57 01/21/2017 KKnebel R.N. per protocol) (21:58 KKnebel R.N.) CMP Urgent (21:57 01/21/2017 KKnebel R.N. per protocol) (21:58 KKnebel R.N.) UA-Culture if indicated Urgent (21:57 01/21/2017 KKnebel R.N. per protocol) (Ack 22:01 IJurca ER Tech1) (23:13 KKnebel R.N.) NPO (21:57 01/21/2017 KKnebel R.N. per protocol) (21:58 KKnebel R.N.) US Abdomen Limited (Yes) (3 days of right upper quad pain now with vomiting) Urgent (22:18 01/21/2017 ABlanchette PA-C) (Ack 22:22 IJurca ER Tech1) (23:13 KKnebel R.N.) CBC w Diff Urgent (22:20 01/21/2017 ABlanchette PA-C) (Cancelled: Duplicate Order22:20 ABlanchette PA-C) (Ack 22:22 IJurca ER Tech1) CMP Urgent (22:20 01/21/2017 ABlanchette PA-C) (Cancelled: Duplicate Order22:20 ABlanchette PA-C) (Ack 22:22 IJurca ER Tech1) Amylase Urgent (22:20 01/21/2017 ABlanchette PA-C) (Ack 22:22 IJurca ER Tech1) (22:34 KKnebel R.N.) Lipase Urgent (22:20 01/21/2017 ABlanchette PA-C) (Ack 22:22 IJurca ER Tech1) (22:34 KKnebel R.N.) MEDICATION ORDERS: IV FLUIDS: IV Saline Lock (21:57 01/21/2017 KKnebel R.N. per protocol) (21:57 Afshan Dowling) Dilaudid IV 1 mg (HIGH ALERT MEDICATION, NOW) (22:19 01/21/2017 Ed SANCHEZ) (22:30 Afshan Dowling) Reglan IV 10 mg (NOW) (22:20 01/21/2017 Ed SANCHEZ) (22:30 Afshan Pabon.Toma.) ORDER SHEET NOTES: [Electronically signed by Mercedes Villarreal R.N. (23:01/21/2017)] [Electronically signed by Karey Campuzano PA-C (23:21 01/21/2017)] [Electronically locked/signed by Mercedes Villarreal R.N. (23:13 01/21/2017)]
--- NOTE | 2017-01-21 23:00 | ED ORDER SUMMARY ---
..... Patient: FLORI LYNCH OrderSheet [facility] VisitID: [id number] [place] [address] 21y, M Registration Date/Time: 01/21/2017 ORDER SHEET Weight: 117.9 kg Allergies: None GENERAL ORDERS: CBC w Diff Urgent (21:57 01/21/2017 KKnebel R.N. per protocol) (21:58 KKnebel R.N.) CMP Urgent (21:57 01/21/2017 KKnebel R.N. per protocol) (21:58 KKnebel R.N.) UA-Culture if indicated Urgent (21:57 01/21/2017 KKnebel R.N. per protocol) (Ack 22:01 IJurca ER Tech1) (23:13 KKnebel R.N.) NPO (21:57 01/21/2017 KKnebel R.N. per protocol) (21:58 KKnebel R.N.) US Abdomen Limited (Yes) (3 days of right upper quad pain now with vomiting) Urgent (22:18 01/21/2017 ABlanchette PA-C) (Ack 22:22 IJurca ER Tech1) (23:13 KKnebel R.N.) CBC w Diff Urgent (22:20 01/21/2017 ABlanchette PA-C) (Cancelled: Duplicate Order22:20 ABlanchette PA-C) (Ack 22:22 IJurca ER Tech1) CMP Urgent (22:20 01/21/2017 ABlanchette PA-C) (Cancelled: Duplicate Order22:20 ABlanchette PA-C) (Ack 22:22 IJurca ER Tech1) Amylase Urgent (22:20 01/21/2017 ABlanchette PA-C) (Ack 22:22 IJurca ER Tech1) (22:34 KKnebel R.N.) Lipase Urgent (22:20 01/21/2017 ABlanchette PA-C) (Ack 22:22 IJurca ER Tech1) (22:34 KKnebel R.N.) MEDICATION ORDERS: IV FLUIDS: IV Saline Lock (21:57 01/21/2017 KKnebel R.N. per protocol) (21:57 Afshan Dowling) Dilaudid IV 1 mg (HIGH ALERT MEDICATION, NOW) (22:19 01/21/2017 Ed SANCHEZ) (22:30 Afshan Dowling) Reglan IV 10 mg (NOW) (22:20 01/21/2017 Ed SANCHEZ) (22:30 Afshan Pabon.Toma.) ORDER SHEET NOTES: [Electronically signed by Mercedes Villarreal R.N. (23:01/21/2017)] [Electronically signed by Karey Campuzano PA-C (23:21 01/21/2017)] [Electronically locked/signed by Mercedes Villarreal R.N. (23:13 01/21/2017)]
--- NOTE | 2017-01-21 23:21 | ED MED RECONCILIATION SUMMARY ---
Patient: FLORI LYNCH Medication Reconciliation Report [facility] VisitID: [id number] [address] [place] [address] 21y, M Registration Date/Time: 01/21/2017 Weight: 117.9 kg Height/Length: 72 in. BMI: 35.3 ALLERGIES: None The patient's Home Medications are listed below: NONE. The source(s) of the original Home Medication information: Not obtained. The following Medications were given to the patient in the Emergency Department: Dilaudid [IVP] IVP 1 mg, administered: 01/21/2017 10:30:00 PM Reglan [IVP] IVP 10 mg, administered: 01/21/2017 10:30:00 PM The following Medications were prescribed to the patient: Reglan 10 mg tablets: take 1 orally every 6 hours as needed for nausea or vomiting. Dispense ten (10). No refills. Substitution is permissible. -- Karey Campuzano PA-C
--- NOTE | 2017-01-21 23:21 | ED DISCHARGE INSTRUCTIONS ---
Patient: FLORI LYNCH General Instructions [facility] VisitID: [id number] [place] [address] 21y, M Registration Date/Time: 01/21/2017 Bilious vomiting with nausea. Acute right upper quadrant abdominal pain of undetermined cause. INSTRUCTIONS Rest. Do not work for two days until better. Take clear liquids only for the next 24 hours. Advance diet as tolerated. No alcohol. Do not smoke. (no wheat no dairy in diet, start with clear broth and advance as tolerated. all lab was normal, stool was guiac negative. keep your appointment with the employment assistant this week. if your symptoms recur or worsen, return to the ER for further evaluation. your Cat scan and ultrasound did not show definite cause of your symptoms. you may need a colonoscopy.). Warnings: Further evaluation is necessary in order to conduct further tests. It is very important to follow up with a physician. GENERAL WARNINGS: Return or contact your physician immediately if your condition worsens or changes unexpectedly, if not improving as expected, or if other problems arise. Prescription Medications: Reglan 10 mg tablets: take 1 orally every 6 hours as needed for nausea or vomiting. Dispense ten (10). No refills. Substitution is permissible. Follow-up: Follow up with a employment assistant as scheduled. Reason for referral: GI bleed, possible colitis. Understanding of the discharge instructions verbalized by patient. Rest. Do not work for two days until better. (Electronically signed by Karey Campuzano PA-C 01/21/2017 23:21)
--- NOTE | 2017-01-21 23:21 | ED MAR SUMMARY ---
..... Medication Administration Record [facility] [address] [place] [address] Patient: FLORI LYNCH Visit ID: [id number] 21y, M Weight: 117.9 kg Height/Length: 72 in BMI: 35.3 ALLERGIES: None Given 22:01/21/2017 Mercedes Villarreal R.N. Medication Administered: DILAUDID [IVP] (HYDROMORPHONE HCL PF), Dose: 1 mg IVP over 2 minute(s), Site: #1 right hand. Medication Ordered: Dilaudid IV 1 mg (HIGH ALERT MEDICATION, NOW). Given 22:01/21/2017 Mercedes Villarreal R.N. Medication Administered: REGLAN [IVP] (METOCLOPRAMIDE HCL), Dose: 10 mg IVP over 2 minute(s), Site: #1 right hand. Medication Ordered: Reglan IV 10 mg (NOW).
--- NOTE | 2017-01-21 23:21 | ED MAR SUMMARY ---
..... Medication Administration Record [facility] [address] [place] [address] Patient: FLORI LYNCH Visit ID: [id number] 21y, M Weight: 117.9 kg Height/Length: 72 in BMI: 35.3 ALLERGIES: None Given 22:01/21/2017 Mercedes Villarreal R.N. Medication Administered: DILAUDID [IVP] (HYDROMORPHONE HCL PF), Dose: 1 mg IVP over 2 minute(s), Site: #1 right hand. Medication Ordered: Dilaudid IV 1 mg (HIGH ALERT MEDICATION, NOW). Given 22:01/21/2017 Mercedes Villarreal R.N. Medication Administered: REGLAN [IVP] (METOCLOPRAMIDE HCL), Dose: 10 mg IVP over 2 minute(s), Site: #1 right hand. Medication Ordered: Reglan IV 10 mg (NOW).
--- NOTE | 2017-01-21 23:21 | ED MED RECONCILIATION SUMMARY ---
Patient: FLORI LYNCH Medication Reconciliation Report [facility] VisitID: [id number] [address] [place] [address] 21y, M Registration Date/Time: 01/21/2017 Weight: 117.9 kg Height/Length: 72 in. BMI: 35.3 ALLERGIES: None The patient's Home Medications are listed below: NONE. The source(s) of the original Home Medication information: Not obtained. The following Medications were given to the patient in the Emergency Department: Dilaudid [IVP] IVP 1 mg, administered: 01/21/2017 10:30:00 PM Reglan [IVP] IVP 10 mg, administered: 01/21/2017 10:30:00 PM The following Medications were prescribed to the patient: Reglan 10 mg tablets: take 1 orally every 6 hours as needed for nausea or vomiting. Dispense ten (10). No refills. Substitution is permissible. -- Karey Campuzano PA-C
--- NOTE | 2017-01-21 23:21 | ED DISCHARGE INSTRUCTIONS ---
Patient: FLORI LYNCH General Instructions [facility] VisitID: [id number] [place] [address] 21y, M Registration Date/Time: 01/21/2017 Bilious vomiting with nausea. Acute right upper quadrant abdominal pain of undetermined cause. INSTRUCTIONS Rest. Do not work for two days until better. Take clear liquids only for the next 24 hours. Advance diet as tolerated. No alcohol. Do not smoke. (no wheat no dairy in diet, start with clear broth and advance as tolerated. all lab was normal, stool was guiac negative. keep your appointment with the entrepreneurial finance professor this week. if your symptoms recur or worsen, return to the ER for further evaluation. your Cat scan and ultrasound did not show definite cause of your symptoms. you may need a colonoscopy.). Warnings: Further evaluation is necessary in order to conduct further tests. It is very important to follow up with a physician. GENERAL WARNINGS: Return or contact your physician immediately if your condition worsens or changes unexpectedly, if not improving as expected, or if other problems arise. Prescription Medications: Reglan 10 mg tablets: take 1 orally every 6 hours as needed for nausea or vomiting. Dispense ten (10). No refills. Substitution is permissible. Follow-up: Follow up with a entrepreneurial finance professor as scheduled. Reason for referral: GI bleed, possible colitis. Understanding of the discharge instructions verbalized by patient. Rest. Do not work for two days until better. (Electronically signed by Karey Campuzano PA-C 01/21/2017 23:21)
--- NOTE | 2017-01-22 00:14 | DIAGNOSTIC IMAGING REPORT ---
PROCEDURE: US ABDOMEN ULTRASOUND-LIMITED INDICATION: Right abdominal pain. TECHNIQUE: [place]al[place] scale and color Doppler sonographic images of the abdomen were obtained. COMPARISON: Compared CT abdomen pelvis on 01/18/2017. FINDINGS: Study is limited due to body habitus. Gallbladder is contracted (patient 3 hours post prandial). No evidence of gallstones. Common duct is not visualized. There is increased echogenicity throughout the liver. Pancreas is obscured by bowel gas. Portions of the right kidney are seen, and are normal. IMPRESSION: 1. Partially limited study due to body habitus. 2. Gallbladder is partially contracted (patient 3-4 hours post prandial). No evidence of gallstones. 3. Increased echogenicity of the liver suggests intrinsic liver disease (versus fatty infiltration).
== END 2017-01-21 23:00 | disposition home or self-care (01) ==
LOC: ED SRH 21:01
DX: R11.14 Bilious vomiting (principal); R11.0 Nausea; R10.11 Right upper quadrant pain
CPT/HCPCS: 90100; 92235; 92530; 95059